=== PATIENT | female | born 1935 | race Caucasian/White ===

== ENCOUNTER → 2018-03-26 | Outpatient (CLI) | payer MEDICARE, OTHER | END | disposition home or self-care (01) | LOC: RAD 12:11 | DX: M48.56XA Collapsed vertebra, not elsewhere classified, lumbar region, initial encounter for fracture (principal); I71.4 Abdominal aortic aneurysm, without rupture; M43.16 Spondylolisthesis, lumbar region | CPT/HCPCS: 72100 ==